=== PATIENT | male | born 1945 | race Caucasian/White ===

== ENCOUNTER 2020-02-16 09:48 | Emergency (ER) | payer MEDICARE, OTHER ==
[2020-02-16] MEDS: SODIUM CHLORIDE 0.9% 1000ML 1,000 ML IVS ONE (10:18)
--- NOTE | 2020-02-16 10:35 | RAD ---
EXAM DESCRIPTION: Chest,2 Views CLINICAL HISTORY: 74 years Male, COUGH COMPARISON: None. FINDINGS: 2 views/radiographs Heart size and pulmonary vessels are within normal limits. There is no pneumothorax or pleural effusion. The lungs are clear bilaterally. The soft tissues are unremarkable. No acute osseous findings. Median sternotomy. The lungs are hyperexpanded. IMPRESSION: No acute cardiopulmonary abnormality. Electronically signed by: Mohinder Arenas MD 02/16/2020 10:33 AM [facility]
--- NOTE | 2020-02-16 12:22 | ED.PDOC ---
History of Present Illness - General Chief Complaint: Fever Stated Complaint: fever, dizziness, FREITAS, body aches Time Seen by Provider: 02/16/20 10:01 - History of Present Illness Initial Comments: PATIENT PRESENTS W/ 3 DAY HX OF FEVER, COUGH, DIARRHEA, NAUSEA, LOSS OF TASTE AND SMELL. Fever Severity/Quality: greater than 102 F Fever Therapy RUFFLER: Tylenol Associated Symptoms: denies symptoms Review of Systems - Review of Systems Constitutional: States: see HPI, chills, diaphoresis, malaise, weakness EENTM: States: nose congestion Respiratory: States: see HPI, cough Cardiology: States: no symptoms reported Gastrointestinal/Abdominal: States: see HPI Genitourinary: States: no symptoms reported Musculoskeletal: States: muscle pain Skin: States: no symptoms reported Past Medical History (General) - Patient Medical History Hx Stroke: Yes Hx Cardiac Disorders: Yes Hx Hypertension: Yes Surgical History: coronary bypass surgery - Social History Hx Alcohol Use: Yes - Activities of Daily Living Hospice Agency (if applicable):: None - Female History Patient is a Female of Child Bearing Age (10 -59 yrs old): No Family Medical History - Family History Mother Family History: Unknown Physical Exam - Physical Exam General Appearance: Alert, Well Developed, Well Groomed, Well Hydrated, Well Nourished ENT Exam: normal ENT inspection, TMs normal Neck: non-tender, full range of motion, supple, normal inspection Respiratory: chest non-tender, lungs clear, normal breath sounds, no respiratory distress, no accessory muscle use Cardiovascular/Chest: normal peripheral pulses, regular rate, rhythm, no edema, no gallop Gastrointestinal/Abdominal: normal bowel sounds, non tender, soft, no organomegaly Extremity: normal range of motion, non-tender, normal inspection, no pedal edema, no calf tenderness 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 Departure - Departure Clinical Impression: COVID-19 Time of Disposition: 13:06 Disposition: Discharge to Home or Self Care Condition: Good Departure Forms: ED Discharge - Pt. Copy, Patient Portal Self Enrollment Instructions: Coronavirus Disease 2019 (COVID-19) Overview Prescriptions: Ondansetron Odt [Zofran ODT] 8 mg PO Q8H PRN #15 tab PRN Reason: NAUSEA, VOMITING Home Medications: Ambulatory Orders Ondansetron Odt [Zofran ODT] 8 mg PO Q8H PRN #15 tab 02/16/20
[2020-02-16 13:22] VITALS: BP 177/79; TEMP 98.1; O2SAT 97
== END 2020-02-16 13:17 | disposition home or self-care (01) ==
LOC: ER 09:48
DX: U07.1 COVID-19 (principal); I10 Essential (primary) hypertension; I51.9 Heart disease, unspecified; Z95.1 Presence of aortocoronary bypass graft; Z86.73 Personal history of transient ischemic attack (TIA), and cerebral infarction without residual deficits